=== PATIENT | male | born 1975 | race Caucasian/White ===

== ENCOUNTER 2020-08-03 09:02 | Emergency (ER) | payer OTHER, SELFPAY ==
--- NOTE | ~2020-08-03 | CT_ITS ---
EXAMINATION: CT FACIAL BONES WITH CONTRAST CLINICAL INFORMATION: Left-sided facial pain, numbness in transverse COMPARISON: None TECHNIQUE: Axial images through the facial bones following 85 mL Omnipaque 350 intravenous contrast. Sagittal and coronal reconstructions on the technologist workstation were performed. This CT examination was performed using dose optimization techniques as appropriate, variously including the following: *Automated exposure control *Adjustment of mA and/or kV according to patient size (this includes techniques or standardized protocols for targeted exams where dose is matched to indication/reason for exam; i.e. extremities or head) *Use of iterative reconstruction technique DLP: 280 mGy-cm FINDINGS: There is evidence of bilateral frontal, ethmoid and maxillary sinusitis. There are small air-fluid levels seen in the bilateral maxillary sinuses. The nasal septum is deviated slightly to the right. The mastoid air cells and middle ears are clear. There small calcifications in the left parotid gland. The parotid glands are otherwise normal. The sublingual and submandibular glands are normal. There is shotty bilateral cervical lymphadenopathy. No enlarged lymph nodes are seen. The orbits are normal. The temporomandibular joints are normal. No acute fracture or dislocation is seen. There is mild degenerative spondylosis and proximal cervical spine at C3-C4 and C4-C5. Vascular structures are unremarkable. CT/CT facial bones w con IMPRESSION: Mild sinusitis. Small calcifications in the left parotid gland. Left parotid gland is otherwise normal without evidence of parotiditis.
[2020-08-03 09:08] VITALS: BP 148/89; PULSE 98; RESP 17; TEMP 36.6; O2SAT 96; BMI 31.6
--- NOTE | 2020-08-03 10:02 | ED_ITS ---
HPI - General Adult General Chief complaint: Dental/Oral <LASHON Draper - Last Filed: 08/03/20 13:40> Stated complaint: left side head pain <LASHON Draper - Last Filed: 08/03/20 13:40> Time Seen by Provider: 08/03/20 09:45 <LASHON Draper - Last Filed: 08/03/20 13:40> Source: patient <LASHON Draper - Last Filed: 08/03/20 13:40> Mode of arrival: ambulatory <LASHON Draper Last Filed: 08/03/20 13:40> History of Present Illness HPI narrative: 44-year-old male with no significant past medical history presenting to the emergency department with right-sided facial pain. He states 6 months ago he was sitting at the dining table with his family and had pulled out his tooth on the left lower side. Several months later he developed an infection and required a root canal. He was taking antibiotics prior to the procedure but no one continued his antibiotics post root canal. He is not sure what he was taking. Those antibiotics have completed. He states over the past 5 days he has noticed increased pain to that left side of his face and around his left ear. He also notes he has felt numbness to his preauricular area extending up to his left restorationist. He states he is a little congested and is unsure if it is related. He states he saw his dentist and said he had an x-ray and was told it is not a dental infection. He was referred to an oral surgeon that he saw, Dr. Alas, which will limit was not his teeth and this could be a tumor and that he needs to see Neurology. Patient was very concerned and called his dentist back in the morning and was told to come to the ER. He is having a difficult time opening his mouth, difficulty eting larger food such as cheeseburgers, grinders, he can no longer eat them without cutting it up. He denies grinding his teeth at night. He denies fevers, ear pain, sore throat. <LASHON Draper Last Filed: 08/03/20 13:40> Related Data Home medications: Previous Rx's Medication Instructions Recorded cyclobenzaprine 5 mg PO BEDTIME 7 Days #7 tab 08/03/20 ibuprofen 600 mg PO Q6H PRN 7 Days #28 tab 08/03/20 <LASHON Draper - Last Filed: 08/03/20 13:40> Allergies/adverse reactions: Allergies Allergy/AdvReac Type Severity Reaction Status Date / Time No Known Allergies Allergy Unverified 11/06/19 15:10 [No Known Allergies*] <LASHON Draper - Last Filed: 08/03/20 13:40> Review of Systems Constitutional: Constitutional: Denies fever(s) and Denies headache(s) <LASHON Draper - Last Filed: 08/03/20 13:40> Eyes: Eyes: Reports no additional eye complaints <LASHON Draper - Last Filed: 08/03/20 13:40> ENT: Reports dental pain and Denies headache(s) <LASHON Draper - Last Filed: 08/03/20 13:40> Comments: difficulty opening mouth, nasal congestion <LASHON Draper - Last Filed: 08/03/20 13:40> Cardiovascular: Cardiovascular: Denies chest pain and Denies dyspnea <LASHON Draper - Last Filed: 08/03/20 13:40> Respiratory: Respiratory: Denies cough and Denies dyspnea <LASHON Draper - Last Filed: 08/03/20 13:40> Gastrointestinal: Gastrointestinal: Denies abdominal pain and Denies vomiting <LASHON Draper - Last Filed: 08/03/20 13:40> Musculoskeletal: Musculoskeletal: Reports no additional musculoskeletal complaints <LASHON Draper - Last Filed: 08/03/20 13:40> Neurologic: Denies headache(s) <LAHSON Draper - Last Filed: 08/03/20 13:40> Comments: numbness to L face <LASHON Draper - Last Filed: 08/03/20 13:40> Psychiatric: Psychiatric: Reports no additional psychiatric complaints <LASHON Draper - Last Filed: 08/03/20 13:40> Hematologic/Lymphatic: Hematologic/Lymphatic: Denies easy bleeding <LASHON Draper - Last Filed: 08/03/20 13:40> [facility] Social History Social History: Social History (Updated 08/03/20 @ 12:38 by LASHON Draper) Household Members: Spouse and Children Patient Tobacco Use Status: Never used Tobacco Advance Directives: No Advance Directives Information Provided: Yes Current occupation: employed <LASHON Draper - Last Filed: 08/03/20 13:40> Physical Exam Vital Signs: Vital Signs: Last Vital Signs Temp 98.3 F 08/03/20 13:30 Pulse 73 08/03/20 13:30 Resp 16 08/03/20 13:30 BP 140/87 H 08/03/20 13:30 Pulse Ox 97 08/03/20 13:30 Body Mass Index 31.6 <LASHON Draper - Last Filed: 08/03/20 13:40> Vital Signs: Last Vital Signs Temp 98.3 F 08/03/20 13:30 Pulse 73 08/03/20 13:30 Resp 16 08/03/20 13:30 BP 140/87 H 08/03/20 13:30 Pulse Ox 97 08/03/20 13:30 Body Mass Index 31.6 <Navid Sow MD - Last Filed: 08/03/20 12:43> Const: Other: sitting upright in chair <LASHON Draper - Last Filed: 08/03/20 13:40> General: cooperative <LASHON Draper - Last Filed: 08/03/20 13:40> Orientation/consciousness: patient oriented x3 <LASHON Draper - Last Filed: 08/03/20 13:40> HENMT: Other: able to open 3 finger fold, no sublingual woodiness, no uvula deviation, no pharyngeal erythema, no tonsilar exudate or hypertrophy, no dental abscess or tenderness, no facial swelling, no parotid swelling, no mastoid swelling or tenderness, no lymphadenopathy <LASHON Draper - Last Filed: 08/03/20 13:40> Head: Yes normocephalic and Yes atraumatic <LASHON Draper - Last Filed: 08/03/20 13:40> Ears: TM's normal bilaterally <Inna Talbert PA - Last Filed: 08/03/20 13:40> Eyes: Pupils: Equal, round and reactive pupils present <Inna kitchen PA - Last Filed: 08/03/20 13:40> EOM: EOMs intact bilaterally <Inna Talbert PA - Last Filed: 08/03/20 13:40> Neck: Neck: Yes full ROM, Yes trachea midline and Yes supple <Inna Talbert PA - Last Filed: 08/03/20 13:40> Resp: Effort & Inspection: normal respiratory effort and able to speak in complete sentences <LASHON Draper - Last Filed: 08/03/20 13:40> Cardio: Rate: regular rate <Inna Talbert PA - Last Filed: 08/03/20 13:40> GI: Inspection: No distended <LASHON Draper - Last Filed: 08/03/20 13:40> Back/Spine/Pelvis: Other: full ROM <Inna Talbert PA - Last Filed: 08/03/20 13:40> Skin: General skin exam: no rashes or lesions noted <LASHON Draper - Last Filed: 08/03/20 13:40> Neuro: Other: subjective diminished sensation to left anterior temporal region extending to the preauricular region <Inna Talbert PA - Last Filed: 08/03/20 13:40> General: patient oriented x3 <LASHON Draper - Last Filed: 08/03/20 13:40> Cranial nerves: Yes Equal, round and reactive pupils present <LASHON Draper - Last Filed: 08/03/20 13:40> Extrem: General: Yes full ROM <LASHON Draper - Last Filed: 08/03/20 13:40> Psych: Appearance: well kempt <LASHON Draper - Last Filed: 08/03/20 13:40> Course Course Course Narrative: Patient was sitting upright using his cellphone. I discussed results with him. Will trial NSAIDs and a muscle relaxant. I encouraged him to follow up with his PCP. I will give him ENT follow-up should symptoms not improve. His CT max face do not show evidence of infection. Patient is otherwise well- appearing and is ready for discharge home. <LASHON Draper - Last Filed: 08/03/20 13:40> I have discussed the case and management with the ERASMO <Navid Sow MD - Last Filed: 08/03/20 12:43> Medical Decision Making [facility] Narrative Medical decision making narrative: 44-year-old otherwise healthy male presenting to the emergency department with concerns of left facial pain with numbness Vital stable, nontoxic appearing, hemodynamically stable Will plan for basic labs to assess for leukocytosis, anemia renal dysfunction. Check for electrolyte abnormalities. Will check inflammatory markers. I doubt this is a central CVA process given the distribution of his paresthesia. No focal deficits, speech changes, no associated headache or dizziness. Lower suspicion for temporal arteritis given he has no associated headache. His ears are clear no evidence of otitis media. Lower suspicion for acute parotitis given no significant swelling. No concern for mastoiditis in no swelling and tenderness to his mastoid process. No evidence of retropharyngeal abscess or peritonsillar abscess. No Doe's. He does not have a dental abscess on exam. No rash to suggest zoster. No submandibular swelling. No airway compromise. Symptoms could be due to his TMJ. Patient is concerned because the oral surgeon also mentioned he may have a tumor that could be causing his symptoms and therefore plan for max face CT with IV contrast to rule out underlying infectious source. No evidence of Derry' Palsy. Case discussed with attending <LASHON Draper - Last Filed: 08/03/20 13:40> Lab Data Result diagrams: : 08/03/20 10:24 08/03/20 10:24 <LASHON Draper - Last Filed: 08/03/20 13:40> Labs: Lab Results 08/03/20 08/03/20 08/03/20 Range/Units 10:24 10:24 10:24 WBC 7.8 (4.8-10.8) X10*3/uL RBC 5.35 (4.60-5.80) X10*6/uL Hgb 16.1 (14.0-18.0) g/dl Hct 49.0 (42-52) % MCV 91.6 (80-98) fL MCH 30.1 (27.0-33.0) pg MCHC 32.9 (31.0-36.0) g/dl RDW 14.2 (11.0-16.0) % Plt Count 345 (160-400) X10*3/uL MPV 9.3 L (9.4-12.4) fL Immature Gran % (Auto) 1.0 H (0.0-0.4) % Neut % (Auto) 63.5 (45-73) % Lymph % (Auto) 16.5 L (20-40) % Chase % (Auto) 13.8 H (2-11) % Eos % (Auto) 4.4 H (0-4) % Baso % (Auto) 0.8 (0-2) % Lymph # (Auto) 1.3 (1.2-4.9) X10*3/uL Chase # (Auto) 1.1 (0.1-1.2) X10*3/uL Eos # (Auto) 0.3 (0.0-0.4) X10*3/uL Baso # (Auto) 0.1 (0.0-0.2) X10*3/uL Abs Immat Gran (auto) 0.08 H (0.00-0.03) X10*3/uL Absolute Neuts (auto) 5.0 (2.0-8.3) X10*3/uL Absolute Nucleated RBC 0.000 (0.0-0.012) X10*3/uL Nucleated RBC % (auto) 0.0 (0.0-0.2) /100WBC ESR 11 (0-15) MM/HR Sodium 141 (135-145) mmol/L Potassium 5.3 H (3.3-5.1) mmol/L Chloride 106 (96-108) mmol/L Carbon Dioxide 25 (22-29) mmol/L Anion Gap 15 (12-20) BUN 14 (9-16) mg/dL Creatinine 1.01 (0.5-1.4) mg/dL Estim Creat Clear Calc 112.9 Estimated GFR > 60 Random Glucose 113 (60-115) mg/dL Calcium 9.5 (8.4-10.2) mg/dL C-Reactive Protein 0.81 H (< or = 0.50) mg/dL <LASHON Draper - Last Filed: 08/03/20 13:40> Lab Results 08/03/20 08/03/20 08/03/20 Range/Units 10:24 10:24 10:24 WBC 7.8 (4.8-10.8) X10*3/uL RBC 5.35 (4.60-5.80) X10*6/uL Hgb 16.1 (14.0-18.0) g/dl Hct 49.0 (42-52) % MCV 91.6 (80-98) fL MCH 30.1 (27.0-33.0) pg MCHC 32.9 (31.0-36.0) g/dl RDW 14.2 (11.0-16.0) % Plt Count 345 (160-400) X10*3/uL MPV 9.3 L (9.4-12.4) fL Immature Gran % (Auto) 1.0 H (0.0-0.4) % Neut % (Auto) 63.5 (45-73) % Lymph % (Auto) 16.5 L (20-40) % Chase % (Auto) 13.8 H (2-11) % Eos % (Auto) 4.4 H (0-4) % Baso % (Auto) 0.8 (0-2) % Lymph # (Auto) 1.3 (1.2-4.9) X10*3/uL Chase # (Auto) 1.1 (0.1-1.2) X10*3/uL Eos # (Auto) 0.3 (0.0-0.4) X10*3/uL Baso # (Auto) 0.1 (0.0-0.2) X10*3/uL Abs Immat Gran (auto) 0.08 H (0.00-0.03) X10*3/uL Absolute Neuts (auto) 5.0 (2.0-8.3) X10*3/uL Absolute Nucleated RBC 0.000 (0.0-0.012) X10*3/uL Nucleated RBC % (auto) 0.0 (0.0-0.2) /100WBC ESR 11 (0-15) MM/HR Sodium 141 (135-145) mmol/L Potassium 5.3 H (3.3-5.1) mmol/L Chloride 106 (96-108) mmol/L Carbon Dioxide 25 (22-29) mmol/L Anion Gap 15 (12-20) BUN 14 (9-16) mg/dL Creatinine 1.01 (0.5-1.4) mg/dL Estim Creat Clear Calc 112.9 Estimated GFR > 60 Random Glucose 113 (60-115) mg/dL Calcium 9.5 (8.4-10.2) mg/dL C-Reactive Protein 0.81 H (< or = 0.50) mg/dL <Navid Sow MD - Last Filed: 08/03/20 12:43> Discharge Plan Discharge Clinical Impression: TMJ arthralgia <LASHON Draper - Last Filed: 08/03/20 13:40> Patient Disposition: Home, Self-Care <LASHON Draper - Last Filed: 08/03/20 13:40> Instructions: Temporomandibular Disorder (ED) <LASHON Draper - Last Filed: 08/03/20 13:40> Additional Instructions: Please return to the emergency department if your symptoms worsen, increased pain, difficulty opening your mouth, trouble swallowing, increased numbness, dizziness, headache, vision changes, speech changes, difficulty walking or any other concerning symptoms. Please call the ENT surgeon if your symptoms continue x 1 week despite taking the medication prescribed. Please call your doctor for follow up to make sure your symptoms are improving. <LASHON Draper - Last Filed: 08/03/20 13:40> Prescriptions: New ibuprofen 600 mg tablet 600 mg PO Q6H PRN (Reason: pain) 7 Days Qty: 28 RF: 0 cyclobenzaprine 5 mg tablet 5 mg PO BEDTIME 7 Days Qty: 7 RF: 0 <LASHON Draper - Last Filed: 08/03/20 13:40> Referrals: Devon Vital [Physician] - 1 week (if your symptoms are not improving ) <LASHON Draper - Last Filed: 08/03/20 13:40> Stand Alone Forms: Work/School Release <LASHON Draper - Last Filed: 08/03/20 13:40> Interventions: ED Discharge Assessment Last Done: 08/03/20 13:31 <LASHON Draper - Last Filed: 08/03/20 13:40> Discharge Date/Time: 08/03/20 13:31 <LASHON Draper - Last Filed: 08/03/20 13:40>
[2020-08-03] MEDS: Ketorolac Tromethamine 15 MG/ML VIAL IVPUSH (10:29)
[2020-08-03 10:30] LABS: MANUAL DIFF FLAG NO
[2020-08-03 10:32] LABS: Basophils Absolute Auto 0.1 X10*3/uL (0.0-0.2); Basophils Percent Auto 0.8 % (0-2); Eosinophils Absolute Auto 0.3 X10*3/uL (0.0-0.4); Eosinophils Percent Auto 4.4 % (0-4); Hemoglobin 16.1 g/dl (14.0-18.0); Imm Gran Abs Auto 0.08 X10*3/uL (0.00-0.03); Lymphocytes Absolute Auto 1.3 X10*3/uL (1.2-4.9); Lymphocytes Percent Auto 16.5 % (20-40); Mean Corpuscular HGB Conc 32.9 g/dl (31.0-36.0); Mean Corpuscular Hemoglobin 30.1 pg (27.0-33.0); Mean Corpuscular Volume 91.6 fL (80-98); Mean Platelet Volume 9.3 fL (9.4-12.4); Monocytes Absolute Auto 1.1 X10*3/uL (0.1-1.2); Monocytes Percent Auto 13.8 % (2-11); Neutrophils Percent Auto 63.5 % (45-73); Platelet Count 345 X10*3/uL (160-400); Red Blood Count 5.35 X10*6/uL (4.60-5.80); Red Cell Distribution Width 14.2 % (11.0-16.0); White Blood Count 7.8 X10*3/uL (4.8-10.8)
[2020-08-03 11:04] LABS: Anion Gap 15 (12-20); Blood Urea Nitrogen 14 mg/dL (9-16); C Reactive Protein 0.81 mg/dL (< or = 0.50); Calcium 9.5 mg/dL (8.4-10.2); Carbon Dioxide 25 mmol/L (22-29); Chloride 106 mmol/L (96-108); Creatinine Clr Calc Pharmacy 112.9; Estimated Glomerular Filt Rate > 60; Glucose Random 113 mg/dL (60-115); Potassium 5.3 mmol/L (3.3-5.1); Sodium 141 mmol/L (135-145)
[2020-08-03 11:17] LABS: Erythrocyte Sedimentation Rate 11 MM/HR (0-15)
[2020-08-03] MEDS: iohexoL 350 MG/ML 100 ML INFUS..BTL IV (11:58)
[2020-08-03 13:30] VITALS: BP 140/87; PULSE 73; RESP 16; TEMP 36.8; O2SAT 97
== END 2020-08-03 13:31 | disposition home or self-care (01) ==
PROVIDERS: Physician Assistant Medical; Emergency Provider Emergency Medicine; PCP Internal Medicine
DX: M26.629 Arthralgia of temporomandibular joint, unspecified side (principal); R51.9 Headache, unspecified
CPT/HCPCS: 36415; 70487; 80048; 85025; 85652; 86140; 96374; 99284; J1885; Q9967